=== PATIENT | female | born 1930 | race Caucasian/White ===

== ENCOUNTER 2019-10-29 11:15 | Inpatient (IN) ==
[2019-10-29 12:26] LABS: Basophils % 0.2 % (0.0-0.8); Hematocrit 41.2 VOL% (35.7-47.0); Hemoglobin 14.1 GM/DL (12.0-16.0); Immature Granulocytes % 0.4 %; Immature Granulocytes Absolute 0.04 #; Lymphocytes # 0.4 10*3/uL (1.4-4.0); Lymphocytes % 3.3 % (21.3-54.2); Mean Corpuscular HGB Conc 34.2 GM/DL (32-36); Mean Corpuscular Volume 87.3 FL (87-102); Mean Platelet Volume 9.9 FL (9.6-12.0); Monocytes % 5.3 % (1.7-12.7); Neutrophils % 90.8 % (38.7-73.9); Platelet Count 206 T/CUMM (130-400); Red Blood Count 4.72 MC/CUMM (3.8-5.5); Red Cell Distribution Width 12.5 % (9.3-17.3); White Blood Count 10.9 T/CUMM (4-12)
[2019-10-29] MEDS ORDERED: SODIUM CHLORIDE 0.9% 1,000 ML IV STA (12:38)
[2019-10-29 12:41] LABS: Calcium 8.8 MG/DL (8.5-10.1); Osmolality,Calculated 273.7 MOS/KG (273-304)
[2019-10-29] MEDS ORDERED: POTASSIUM CHLORIDE 20 MEQ TABLET PO STA (12:45)
[2019-10-29 12:46] LABS: Band Neutrophils 29 % (0-10); Lymphocytes 4 % (20-55); Platelet Estimate Normal; Segmented Neutrophils 64 % (50-85); Total Cells Counted 100
[2019-10-29 12:47] LABS: Anisocytosis 2+
[2019-10-29] MEDS: SODIUM CHLOR 0.9% KCL 20 MEQ 20 MEQ/1,000 ML BAG IV SCH ×2 (13:18→18:09)
[2019-10-29] MEDS ORDERED: MAGNESIUM SULF RIDER 4 GM in PREMIX 1 EACH IV PRN (16:24)
[2019-10-29] MEDS ORDERED: ONDANSETRON 4 MG/2 ML VIAL IV PRN (16:24)
[2019-10-29] MEDS ORDERED: MAGNESIUM SULF RIDER 2 GM in PREMIX 1 EACH IV PRN (16:24)
[2019-10-29] MEDS ORDERED: METOPROLOL TARTRATE 5 MG/5 ML VIAL IV PRN (16:26)
[2019-10-29] MEDS: POTASSIUM CHLORIDE RIDER 10 MEQ in PREMIX 1 EACH IV SCH ×4 (17:50→23:47)
[2019-10-29] MEDS: AMPICILLIN/SULBACTAM 3,000 MG in SODIUM CHLORIDE 0.9% 100 ML IV SCH (17:51)
[2019-10-29] MEDS: HEPARIN 5,000 UNIT/1 ML VIAL SUBCUT SCH (17:52)
[2019-10-29] MEDS: ACETAMINOPHEN 325 MG TABLET PO PRN (19:45)
[2019-10-29 22:37] LABS: Ferritin 405.6 ng/ml (8-252)
[2019-10-30] MEDS: HEPARIN 5,000 UNIT/1 ML VIAL SUBCUT SCH ×3 (00:06→17:17)
[2019-10-30] MEDS: POTASSIUM CHLORIDE RIDER 10 MEQ in PREMIX 1 EACH IV SCH ×4 (00:06→01:36)
[2019-10-30] MEDS: AMPICILLIN/SULBACTAM 3,000 MG in SODIUM CHLORIDE 0.9% 100 ML IV SCH ×4 (02:30→20:44)
[2019-10-30 05:19] LABS: Basophils % 0.3 % (0.0-0.8); Eosinophils % 0.4 % (0.00-10.9); Hematocrit 35.3 VOL% (35.7-47.0); Hemoglobin 11.8 GM/DL (12.0-16.0); Immature Granulocytes % 0.5 %; Immature Granulocytes Absolute 0.04 #; Lymphocytes # 0.5 10*3/uL (1.4-4.0); Lymphocytes % 6.2 % (21.3-54.2); Mean Corpuscular HGB Conc 33.4 GM/DL (32-36); Mean Corpuscular Volume 88.3 FL (87-102); Monocytes % 9.5 % (1.7-12.7); Neutrophils % 83.1 % (38.7-73.9); Platelet Count 187 T/CUMM (130-400); Red Cell Distribution Width 12.5 % (9.3-17.3); White Blood Count 7.6 T/CUMM (4-12)
[2019-10-30 05:45] LABS: Albumin 2.6 G/DL (3.4-5.0); Bilirubin,Total 0.7 MG/DL (0.2-1.0); Ferritin 378.3 ng/ml (8-252); Osmolality,Calculated 272.1 MOS/KG (273-304); Total Protein 6.1 G/DL (6.4-8.3)
[2019-10-30 05:46] LABS: Risk Ratio 4.18; VLDL CHOLESTEROL 25.6 MG/DL
[2019-10-30 07:45] LABS: Sedimentation Rate-Westergren 34 MM/HR (0-30)
[2019-10-30] MEDS ORDERED: POTASSIUM CHLORIDE INJ 80 MEQ in SODIUM CHLORIDE 0.9% 1,000 ML IV ONE (09:00)
[2019-10-30] MEDS: PANTOPRAZOLE 40 MG VIAL IV SCH (09:29)
[2019-10-30] MEDS: ACETAMINOPHEN 325 MG TABLET PO PRN (09:43)
[2019-10-30] MEDS: MONTELUKAST 10 MG TABLET PO SCH (09:46)
[2019-10-30] MEDS: DILTIAZEM 60 MG TABLET PO SCH ×2 (09:46→20:43)
[2019-10-30] MEDS: ANASTROZOLE 1 MG TABLET PO SCH (11:48)
[2019-10-30] MEDS: LACTOBACILLUS RHAMNOSUS GG CAPSULE PO SCH (20:43)
[2019-10-30] MEDS ORDERED: SIMVASTATIN 10 MG TABLET PO SCH (21:00)
[2019-10-31] MEDS: HEPARIN 5,000 UNIT/1 ML VIAL SUBCUT SCH ×2 (01:22→09:26)
[2019-10-31] MEDS: ACETAMINOPHEN 325 MG TABLET PO PRN (01:22)
[2019-10-31] MEDS: AMPICILLIN/SULBACTAM 3,000 MG in SODIUM CHLORIDE 0.9% 100 ML IV SCH ×2 (02:10→09:26)
[2019-10-31 07:31] LABS: Basophils % 0.4 % (0.0-0.8); Eosinophils % 0.4 % (0.00-10.9); Hematocrit 35.6 VOL% (35.7-47.0); Hemoglobin 11.7 GM/DL (12.0-16.0); Immature Granulocytes % 0.4 %; Immature Granulocytes Absolute 0.03 #; Lymphocytes # 0.7 10*3/uL (1.4-4.0); Lymphocytes % 9.6 % (21.3-54.2); Mean Corpuscular HGB Conc 32.9 GM/DL (32-36); Mean Platelet Volume 10.2 FL (9.6-12.0); Monocytes % 11.4 % (1.7-12.7); Neutrophils % 77.8 % (38.7-73.9); Platelet Count 218 T/CUMM (130-400); Red Cell Distribution Width 12.6 % (9.3-17.3); White Blood Count 7.6 T/CUMM (4-12)
[2019-10-31 07:49] LABS: Albumin 2.5 G/DL (3.4-5.0); Bilirubin,Total 0.5 MG/DL (0.2-1.0); Calcium 8.2 MG/DL (8.5-10.1); Ferritin 355.8 ng/ml (8-252); Osmolality,Calculated 274.7 MOS/KG (273-304); Total Protein 5.9 G/DL (6.4-8.3)
[2019-10-31 08:05] LABS: Osmolality,Calculated 274.7 MOS/KG (273-304)
[2019-10-31 08:44] LABS: Sedimentation Rate-Westergren 40 MM/HR (0-30)
[2019-10-31] MEDS: ANASTROZOLE 1 MG TABLET PO SCH (08:59)
[2019-10-31] MEDS: MONTELUKAST 10 MG TABLET PO SCH (08:59)
[2019-10-31] MEDS: DILTIAZEM 60 MG TABLET PO SCH (08:59)
[2019-10-31] MEDS: LACTOBACILLUS RHAMNOSUS GG CAPSULE PO SCH (08:59)
[2019-10-31] MEDS ORDERED: POTASSIUM CHLORIDE INJ 80 MEQ in SODIUM CHLORIDE 0.9% 1,000 ML IV ONE (09:00)
[2019-10-31] MEDS: PANTOPRAZOLE 40 MG VIAL IV SCH (09:27)
[2019-10-31 11:36] VITALS: BP 128/56
[2019-10-31] MEDS ORDERED: POTASSIUM CHLORIDE 20 MEQ TABLET PO ONE (12:00)
== END 2019-10-31 14:03 | disposition home health service (06) | DRG 153 ==
LOC: N.ED 11:15 → SUATTDRO 19:07 → N.EDINP 19:07 → N.2E 21:16
PROVIDERS: ADMIT Internal Medicine; ATTEND Internal Medicine